=== PATIENT | female | born 1965 | race African-American/Black ===

== ENCOUNTER 2023-01-20 22:18 | Emergency (ER) | payer OTHER, MEDICAID ==
[~2023-01-20] VITALS: Ht 157.5 cm; Wt 104.0 kg
[~2023-01-20 22:18] MED LIST: LISI-711; TRIA25CA
[2023-01-20 22:27] VITALS: BP 151/84; PULSE 71; RESP 18; O2SAT 97
== END 2023-01-21 00:17 | disposition left against medical advice (07) ==
LOC: ER 22:18
DX: J02.9 Acute pharyngitis, unspecified (principal); Z53.21 Procedure and treatment not carried out due to patient leaving prior to being seen by health care provider

== ENCOUNTER 2023-04-20 00:03 | Emergency (ER) | payer MEDICAID, OTHER ==
[~2023-04-20] VITALS: Ht 157.5 cm; Wt 103.8 kg
[2023-04-20 00:58] VITALS: BP 154/91; PULSE 78; RESP 18; TEMP 98.1; O2SAT 98
[2023-04-20] MEDS ORDERED: AMLO1TAB22 PO (01:58)
== END 2023-04-20 02:19 | disposition home or self-care (01) ==
LOC: ER 00:03
DX: I10 Essential (primary) hypertension (principal); F03.90 Unspecified dementia, unspecified severity, without behavioral disturbance, psychotic disturbance, mood disturbance, and anxiety; Z98.890 Other specified postprocedural states; Z79.899 Other long term (current) drug therapy